=== PATIENT | female | born 1960 | race Caucasian/White ===

== ENCOUNTER 2020-06-07 05:14 | Inpatient (IN) ==
[2020-06-07] MEDS ORDERED: Ondansetron 4 MG/2 ML VIAL IVP ONE (05:46)
[2020-06-07] MEDS ORDERED: *HR* FentaNYL (PF) 100 MCG/2 ML VIAL IVP ONE (05:46)
[2020-06-07 05:55] LABS: Bilirubin,Urine Negative (Negative); Blood,Urine Negative (Negative); Clarity,Urine Clear (Clear); Color,Urine Light-Yellow (Yellow); Glucose,Urine (UA) Normal (Normal); Ketones,Urine Negative (Negative); Leukocyte Esterase,Urine Negative (Negative); Nitrite,Urine Negative (Negative); Protein,Urine Trace mg/dL (Neg-Trace); Urobilinogen,Urine Normal (Normal)
[2020-06-07 06:01] LABS: Basophils # 0.1 K/mcL (0.0-0.2); Basophils % 0.6 %; Eosinophils % 0.5 %; Hematocrit 35.6 % (35.3-44.9); Hemoglobin 12.2 g/dL (11.5-15.4); Immature Granulocytes % 0.4 % (0-4); Lymphocytes # 1.7 K/mcL (0.6-4.6); Mean Corpuscular HGB Conc 34.3 g/dL (31.6-35.5); Mean Corpuscular Hemoglobin 32.7 pg (28.0-33.3); Mean Corpuscular Volume 95.4 fL (83.0-100.0); Monocytes # 0.4 K/mcL (0.0-1.3); Monocytes % 5.2 %; Neutrophils # 5.9 K/mcL (1.6-8.9); Platelet Count 308 K/mcL (140-400); Red Blood Count 3.73 M/mcL (3.82-4.97); Segmented Neutrophils % 72.3 %; White Blood Count 8.1 K/mcL (4.3-11.1)
[2020-06-07 06:19] LABS: Alanine Aminotransferase 18 Units/L (7-52); Albumin 4.6 g/dL (3.5-5.7); Albumin/Globulin Ratio 2.1 (1.1-2.2); Alkaline Phosphatase 34 Units/L (34-104); Aspartate Amino Transferase 20 Units/L (13-39); BUN/Creatinine Ratio 28 (6-26); Bilirubin,Direct 0.1 mg/dL (0.0-0.2); Bilirubin,Indirect 0.2 mg/dL (0.0-1.0); Bilirubin,Total 0.3 mg/dL (0.3-1.0); Blood Urea Nitrogen 24 mg/dL (8-23); Carbon Dioxide 24 mEq/L (23-29); Chloride 105 mEq/L (98-107); Globulin 2.2 g/dL (2.4-3.5); Glucose 134 mg/dL (70-105); Lipase 44 Units/L (11-82); Osmolality,Calculated 294 (280-300); Potassium 4.1 mEq/L (3.5-5.1); Sodium 139 mEq/L (136-145); Total Protein 6.8 g/dL (6.4-8.9); Troponin I < 0.03 ng/mL (< 0.04); eGFR For African Americans > 60 (> 60); eGFR For Non-African Americans > 60 (> 60)
[2020-06-07] MEDS ORDERED: Morphine Sulfate 2 MG/ML SYRINGE IVP ONE (07:06)
[2020-06-07] MEDS ORDERED: Lidocaine -MPF 2% 2 ML VIAL ONE (08:14)
[2020-06-07] MEDS ORDERED: *HR* FentaNYL (PF) 100 MCG/2 ML VIAL ONE (08:14)
[2020-06-07] MEDS ORDERED: Dexamethasone 4 MG/ML VIAL ONE (08:14)
[2020-06-07] MEDS ORDERED: *HR* Midazolam HCl 2 MG/2 ML VIAL ONE (08:14)
[2020-06-07] MEDS ORDERED: *HR* Rocuronium Bromide 50 MG/5 ML VIAL ONE (08:14)
[2020-06-07] MEDS ORDERED: Ondansetron 4 MG/2 ML VIAL ONE (08:14)
[2020-06-07] MEDS ORDERED: *HR* Propofol 200 MG/20 ML VIAL IVP ONE ×2 (08:15)
[2020-06-07] MEDS ORDERED: *HR* Succinylcholine 200 MG/10 ML VIAL IVP ONE (08:19)
[2020-06-07] MEDS ORDERED: Acetaminophen IV 1,000 MG/100 ML BAG ONE (08:27)
[2020-06-07] MEDS ORDERED: 0.9 % Sodium Chloride 1,000 ML IVC SCH (09:00)
[2020-06-07] MEDS ORDERED: Ringers Solution, Lactated 1,000 ML IVC ONE (09:00)
[2020-06-07] MEDS ORDERED: CefOXitin 2,000 MG VIAL ONE (09:00)
[2020-06-07] MEDS ORDERED: cefOXitin 2,000 MG in Water for inj. (sterile) 20 ML IVP ONE (09:04)
[2020-06-07] MEDS ORDERED: Acetaminophen IV 1,000 MG/100 ML BAG IVPB ONE ×2 (09:40→11:08)
[2020-06-07] MEDS ORDERED: *HR* HYDROMORPHONE 2 MG/ML VIAL ONE (09:48)
[2020-06-07] MEDS ORDERED: *HR* PHENYLEPHRINE 1,000 MCG/10 ML SYRINGE IVP ONE (09:49)
[2020-06-07] MEDS ORDERED: cefOXitin 1,000 MG, Sodium Chloride IRRigation 1,000 ML IR ONE (10:00)
[2020-06-07] MEDS ORDERED: Sugammadex Sodium 200 MG/2 ML VIAL IV ONE (10:44)
[2020-06-07] MEDS ORDERED: *HR* Labetalol 20 MG/4 ML SYRINGE IVP PRN (11:08)
[2020-06-07] MEDS ORDERED: *HR* HYDROmorphone 2 MG TABLET PO PRN (11:08)
[2020-06-07] MEDS ORDERED: *HR* OxyCODONE Immed Rel 5 MG TABLET PO PRN (11:08)
[2020-06-07] MEDS ORDERED: Famotidine 20 MG/2 ML VIAL IVP ONE (11:08)
[2020-06-07] MEDS ORDERED: *HR* HYDROmorphone (PF) 1 MG/ML SYRINGE IVP PRN (11:08)
[2020-06-07] MEDS ORDERED: *HR* Metoprolol 5 MG/5 ML VIAL IVP PRN (12:00)
[2020-06-07] MEDS: 0.9 % Sodium Chloride 1,000 ML IVC SCH (13:12)
[2020-06-07] MEDS: cefOXitin 2,000 MG in Water for inj. (sterile) 20 ML IVP SCH (17:37)
[2020-06-07] MEDS: *HR* Heparin 5,000 UNIT/ML VIAL SQ SCH (17:45)
[2020-06-07] MEDS ORDERED: *HR* Heparin 5,000 UNIT/ML VIAL SQ SCH (18:00)
[2020-06-08] MEDS: Morphine Sulfate 2 MG/ML SYRINGE IVP PRN ×2 (00:49→07:32)
[2020-06-08] MEDS: cefOXitin 2,000 MG in Water for inj. (sterile) 20 ML IVP SCH ×4 (00:50→23:20)
[2020-06-08] MEDS: 0.9 % Sodium Chloride 1,000 ML IVC SCH ×2 (03:05→15:02)
[2020-06-08] MEDS: *HR* Heparin 5,000 UNIT/ML VIAL SQ SCH ×2 (05:52→17:21)
[2020-06-08] MEDS: Ketorolac 15 MG/ML VIAL IVP SCH ×5 (09:11→23:23)
[2020-06-08] MEDS: Acetaminophen IV 1,000 MG/100 ML BAG IVPB SCH ×3 (11:19→23:23)
[2020-06-09] MEDS: 0.9 % Sodium Chloride 1,000 ML IVC SCH (05:00)
[2020-06-09] MEDS: Ketorolac 15 MG/ML VIAL IVP SCH ×5 (05:01→17:32)
[2020-06-09] MEDS: *HR* Heparin 5,000 UNIT/ML VIAL SQ SCH ×2 (05:01→17:35)
[2020-06-09] MEDS: Acetaminophen IV 1,000 MG/100 ML BAG IVPB SCH (05:08)
[2020-06-09 06:09] LABS: BUN/Creatinine Ratio 26 (6-26); Blood Urea Nitrogen 16 mg/dL (8-23); Calcium 8.2 mg/dL (8.6-10.3); Carbon Dioxide 26 mEq/L (23-29); Chloride 109 mEq/L (98-107); Glucose 119 mg/dL (70-105); Osmolality,Calculated 292 (280-300); Potassium 3.8 mEq/L (3.5-5.1); Sodium 140 mEq/L (136-145); eGFR For African Americans > 60 (> 60); eGFR For Non-African Americans > 60 (> 60)
[2020-06-09] MEDS: cefOXitin 2,000 MG in Water for inj. (sterile) 20 ML IVP SCH ×2 (09:06→17:26)
[2020-06-09 09:58] LABS: Mean Corpuscular HGB Conc 30.4 g/dL (31.6-35.5); Mean Corpuscular Hemoglobin 31.5 pg (28.0-33.3); Mean Platelet Volume 10.3 fL (9.4-12.4); Platelet Count 223 K/mcL (140-400); Red Blood Count 2.41 M/mcL (3.82-4.97); Red Cell Distribution Width 12.7 % (11.5-14.5)
[2020-06-09 10:00] LABS: White Blood Count 3.2 K/mcL (4.3-11.1)
[2020-06-09 10:02] LABS: Hemoglobin 7.6 g/dL (11.5-15.4)
[2020-06-09 10:03] LABS: Mean Corpuscular Volume 103.7 fL (83.0-100.0)
[2020-06-09] MEDS: *HR* OxyCODONE/APAP 5/325 TABLET PO PRN ×3 (12:40→21:49)
[2020-06-10] MEDS: Ketorolac 15 MG/ML VIAL IVP SCH ×9 (00:05→23:14)
[2020-06-10] MEDS: cefOXitin 2,000 MG in Water for inj. (sterile) 20 ML IVP SCH ×3 (00:05→17:46)
[2020-06-10] MEDS: *HR* Heparin 5,000 UNIT/ML VIAL SQ SCH ×2 (05:54→17:47)
[2020-06-10 06:10] LABS: Hematocrit 22.5 % (35.3-44.9); Hemoglobin 7.3 g/dL (11.5-15.4); Mean Corpuscular HGB Conc 32.4 g/dL (31.6-35.5); Mean Corpuscular Hemoglobin 33.3 pg (28.0-33.3); Mean Corpuscular Volume 102.7 fL (83.0-100.0); Mean Platelet Volume 10.4 fL (9.4-12.4); Platelet Count 227 K/mcL (140-400); Red Blood Count 2.19 M/mcL (3.82-4.97); White Blood Count 1.8 K/mcL (4.3-11.1)
[2020-06-10 08:20] LABS: BUN/Creatinine Ratio 23 (6-26); Blood Urea Nitrogen 15 mg/dL (8-23); Calcium 8.5 mg/dL (8.6-10.3); Carbon Dioxide 24 mEq/L (23-29); Chloride 101 mEq/L (98-107); Glucose 115 mg/dL (70-105); Osmolality,Calculated 280 (280-300); Potassium 3.7 mEq/L (3.5-5.1); Sodium 134 mEq/L (136-145); eGFR For African Americans > 60 (> 60); eGFR For Non-African Americans > 60 (> 60)
[2020-06-10] MEDS: 0.9 % Sodium Chloride 1,000 ML IVC SCH ×2 (09:37→23:12)
[2020-06-11] MEDS: Ketorolac 15 MG/ML VIAL IVP SCH ×5 (00:42→17:42)
[2020-06-11] MEDS: cefOXitin 2,000 MG in Water for inj. (sterile) 20 ML IVP SCH ×3 (00:46→17:41)
[2020-06-11] MEDS: *HR* Heparin 5,000 UNIT/ML VIAL SQ SCH ×2 (06:29→17:42)
[2020-06-11] MEDS: 0.9 % Sodium Chloride 1,000 ML IVC SCH (12:13)
[2020-06-12] MEDS: cefOXitin 2,000 MG in Water for inj. (sterile) 20 ML IVP SCH ×3 (00:16→18:15)
[2020-06-12] MEDS: Ketorolac 15 MG/ML VIAL IVP SCH ×4 (00:17→18:17)
[2020-06-12 02:57] LABS: Hematocrit 20.2 % (35.3-44.9); Hemoglobin 6.6 g/dL (11.5-15.4); Mean Corpuscular HGB Conc 32.7 g/dL (31.6-35.5); Mean Corpuscular Hemoglobin 32.5 pg (28.0-33.3); Mean Corpuscular Volume 99.5 fL (83.0-100.0); Platelet Count 251 K/mcL (140-400); Red Blood Count 2.03 M/mcL (3.82-4.97); Red Cell Distribution Width 11.9 % (11.5-14.5)
[2020-06-12 03:08] LABS: BUN/Creatinine Ratio 32 (6-26); Blood Urea Nitrogen 19 mg/dL (8-23); Calcium 8.1 mg/dL (8.6-10.3); Carbon Dioxide 24 mEq/L (23-29); Chloride 106 mEq/L (98-107); Glucose 126 mg/dL (70-105); Osmolality,Calculated 296 (280-300); Potassium 3.7 mEq/L (3.5-5.1); Sodium 141 mEq/L (136-145); eGFR For African Americans > 60 (> 60); eGFR For Non-African Americans > 60 (> 60)
[2020-06-12 03:10] LABS: White Blood Count 3.6 K/mcL (4.3-11.1)
[2020-06-12] MEDS: *HR* Heparin 5,000 UNIT/ML VIAL SQ SCH ×2 (05:33→18:16)
[2020-06-12] MEDS: Ondansetron 4 MG/2 ML VIAL IVP PRN (08:19)
[2020-06-12] MEDS: 0.9 % Sodium Chloride 1,000 ML IVC SCH ×2 (13:14→19:47)
[2020-06-12] MEDS: Metoclopramide 10 MG/2 ML VIAL IVP SCH ×2 (13:15→18:17)
[2020-06-12] MEDS ORDERED: Chloraseptic Spray 177 ML BOTTLE MM PRN (22:15)
[2020-06-13] MEDS: cefOXitin 2,000 MG in Water for inj. (sterile) 20 ML IVP SCH ×3 (00:26→17:45)
[2020-06-13] MEDS: Ketorolac 15 MG/ML VIAL IVP SCH ×4 (00:26→17:46)
[2020-06-13] MEDS: 0.9 % Sodium Chloride 1,000 ML IVC SCH ×2 (00:37→14:21)
[2020-06-13] MEDS: Metoclopramide 10 MG/2 ML VIAL IVP SCH ×4 (00:46→17:46)
[2020-06-13] MEDS: Ondansetron 4 MG/2 ML VIAL IVP PRN (03:38)
[2020-06-13] MEDS: *HR* Heparin 5,000 UNIT/ML VIAL SQ SCH ×2 (05:37→17:46)
[2020-06-13] MEDS ORDERED: Isovue-370 500 ML BOTTLE IVP ONE (11:21)
[2020-06-14] MEDS: Metoclopramide 10 MG/2 ML VIAL IVP SCH ×4 (00:40→18:20)
[2020-06-14] MEDS: cefOXitin 2,000 MG in Water for inj. (sterile) 20 ML IVP SCH ×3 (00:45→18:17)
[2020-06-14] MEDS: Ketorolac 15 MG/ML VIAL IVP SCH ×2 (00:46→06:00)
[2020-06-14] MEDS: 0.9 % Sodium Chloride 1,000 ML IVC SCH (02:13)
[2020-06-14 05:14] LABS: Hematocrit 20.6 % (35.3-44.9); Hemoglobin 6.6 g/dL (11.5-15.4); Mean Corpuscular Hemoglobin 32.8 pg (28.0-33.3); Mean Corpuscular Volume 102.5 fL (83.0-100.0); Mean Platelet Volume 10.6 fL (9.4-12.4); Monocytes # 0.6 K/mcL (0.0-1.3); Nucleated Red Blood Cells 1.6 /100 WBC (0); Platelet Count 303 K/mcL (140-400); Red Blood Count 2.01 M/mcL (3.82-4.97); Red Cell Distribution Width 12.4 % (11.5-14.5); White Blood Count 5.1 K/mcL (4.3-11.1)
[2020-06-14 05:36] LABS: BUN/Creatinine Ratio 47 (6-26); Blood Urea Nitrogen 35 mg/dL (8-23); Carbon Dioxide 36 mEq/L (23-29); Chloride 109 mEq/L (98-107); Glucose 112 mg/dL (70-105); Osmolality,Calculated 331 (280-300); Potassium 2.9 mEq/L (3.5-5.1); Sodium 156 mEq/L (136-145); eGFR For African Americans > 60 (> 60); eGFR For Non-African Americans > 60 (> 60)
[2020-06-14 05:43] LABS: Lymphocytes # 0.6 K/mcL (0.6-4.6); Neutrophils # 3.8 K/mcL (1.6-8.9)
[2020-06-14] MEDS: *HR* Heparin 5,000 UNIT/ML VIAL SQ SCH ×2 (05:59→18:19)
[2020-06-14] MEDS: Ondansetron 4 MG/2 ML VIAL IVP PRN (06:08)
[2020-06-14] MEDS ORDERED: Potassium Chloride 40 MEQ, Lidocaine 1% 2 ML in 0.9 % Sodium Chloride 500 ML IVPB ONE ×2 (06:49→18:17)
[2020-06-14] MEDS ORDERED: Lidocaine -MPF 1% 5 ML AMPUL INFILT ONE (09:20)
[2020-06-14] MEDS ORDERED: *HR* Dextrose 50 % in Water (Vial) 50 ML VIAL IVP PRN (09:21)
[2020-06-14] MEDS ORDERED: Dextrose Gel 15 GM/37.5 ML TUBE PO PRN ×2 (09:21)
[2020-06-14] MEDS ORDERED: D5% in Water 1,000 ML IVC PRN (09:21)
[2020-06-14 10:25] LABS: Magnesium 2.6 mg/dL (1.6-2.6); Phosphorous 3.5 mg/dL (2.7-4.5)
[2020-06-14] MEDS: Pantoprazole 40 MG VIAL IVP SCH ×3 (11:10→18:19)
[2020-06-14] MEDS ORDERED: D10% in Water 500 ML IVC PRN (11:53)
[2020-06-14] MEDS: D5% in Water 1,000 ML IVC SCH (15:33)
[2020-06-14] MEDS ORDERED: Clinimix E 5%-15% SOLUTION 2,000 ML with MVI, adult with vitamin K 10 ML IVC SCH (17:00)
[2020-06-14] MEDS: Insulin LISPRO 300 UNITS/3 ML VIAL SUBQ SCH ×3 (17:47→23:25)
[2020-06-14] MEDS ORDERED: Potassium Chloride Elixir 20 MEQ/15 ML UDC PO ONE (18:16)
[2020-06-15] MEDS: Metoclopramide 10 MG/2 ML VIAL IVP SCH ×5 (00:35→23:20)
[2020-06-15] MEDS: cefOXitin 2,000 MG in Water for inj. (sterile) 20 ML IVP SCH ×3 (00:38→16:22)
[2020-06-15] MEDS: Insulin LISPRO 300 UNITS/3 ML VIAL SUBQ SCH ×7 (01:30→23:08)
[2020-06-15] MEDS: D5% in Water 1,000 ML IVC SCH (05:01)
[2020-06-15] MEDS: *HR* Heparin 5,000 UNIT/ML VIAL SQ SCH ×2 (05:41→17:13)
[2020-06-15] MEDS: Pantoprazole 40 MG VIAL IVP SCH ×2 (06:18→17:13)
[2020-06-15 06:28] LABS: Hematocrit 22.4 % (35.3-44.9); Hemoglobin 6.8 g/dL (11.5-15.4); Mean Corpuscular HGB Conc 30.4 g/dL (31.6-35.5); Mean Corpuscular Hemoglobin 31.9 pg (28.0-33.3); Mean Corpuscular Volume 105.2 fL (83.0-100.0); Mean Platelet Volume 10.9 fL (9.4-12.4); Platelet Count 385 K/mcL (140-400); Red Blood Count 2.13 M/mcL (3.82-4.97); Red Cell Distribution Width 13.2 % (11.5-14.5)
[2020-06-15 06:30] LABS: White Blood Count 10.7 K/mcL (4.3-11.1)
[2020-06-15 06:44] LABS: BUN/Creatinine Ratio 39 (6-26); Blood Urea Nitrogen 32 mg/dL (8-23); Calcium 7.9 mg/dL (8.6-10.3); Carbon Dioxide 30 mEq/L (23-29); Chloride 115 mEq/L (98-107); Glucose 147 mg/dL (70-105); Magnesium 2.5 mg/dL (1.6-2.6); Osmolality,Calculated 328 (280-300); Phosphorous 2.4 mg/dL (2.7-4.5); Potassium 3.7 mEq/L (3.5-5.1); Sodium 154 mEq/L (136-145); eGFR For African Americans > 60 (> 60); eGFR For Non-African Americans > 60 (> 60)
[2020-06-15 06:57] LABS: Lymphocytes # 1.9 K/mcL (0.6-4.6); Monocytes # 0.4 K/mcL (0.0-1.3); Neutrophils # 8.1 K/mcL (1.6-8.9); Platelet Estimate Normal (Normal); Polychromasia 1+ (Not Present)
[2020-06-15 10:16] LABS: % Iron Saturation 11 % (15-50); Iron 25 mcg/dL (50-170); Transferrin 160 mg/dL (203-362)
[2020-06-15] MEDS ORDERED: Furosemide 20 MG/2 ML VIAL IVP ONE ×2 (10:36→18:00)
[2020-06-15] MEDS ORDERED: Acetaminophen 325 MG TABLET PO ONE ×2 (10:36→14:00)
[2020-06-15] MEDS ORDERED: 0.9 % Sodium Chloride 250 ML IVC SCH (10:45)
[2020-06-15] MEDS: Iron Sucrose Complex 400 MG in 0.9 % Sodium Chloride 250 ML IVPB ONE ×2 (11:07→17:14)
[2020-06-15] MEDS: 0.9 % Sodium Chloride 1,000 ML IVC SCH (12:14)
[2020-06-15] MEDS ORDERED: Clinimix E 5%-15% SOLUTION 2,000 ML IVC SCH (17:00)
[2020-06-15 21:05] LABS: Hematocrit 25.8 % (35.3-44.9); Hemoglobin 8.1 g/dL (11.5-15.4)
[2020-06-15] MEDS: Ondansetron 4 MG/2 ML VIAL IVP PRN (21:29)
[2020-06-16] MEDS: cefOXitin 2,000 MG in Water for inj. (sterile) 20 ML IVP SCH ×2 (01:26→09:30)
[2020-06-16 03:02] LABS: Hematocrit 26.3 % (35.3-44.9); Hemoglobin 8.1 g/dL (11.5-15.4); Mean Corpuscular HGB Conc 30.8 g/dL (31.6-35.5); Mean Corpuscular Hemoglobin 31.2 pg (28.0-33.3); Mean Corpuscular Volume 101.2 fL (83.0-100.0); Mean Platelet Volume 11.1 fL (9.4-12.4); Nucleated Red Blood Cells 0.7 /100 WBC (0); Platelet Count 348 K/mcL (140-400); White Blood Count 14.7 K/mcL (4.3-11.1)
[2020-06-16 03:15] LABS: BUN/Creatinine Ratio 28 (6-26); Blood Urea Nitrogen 27 mg/dL (8-23); Calcium 7.6 mg/dL (8.6-10.3); Carbon Dioxide 30 mEq/L (23-29); Chloride 113 mEq/L (98-107); Glucose 108 mg/dL (70-105); Magnesium 2.3 mg/dL (1.6-2.6); Osmolality,Calculated 324 (280-300); Phosphorous 4.9 mg/dL (2.7-4.5); Potassium 3.3 mEq/L (3.5-5.1); Sodium 154 mEq/L (136-145); eGFR For African Americans > 60 (> 60); eGFR For Non-African Americans 60 (> 60)
[2020-06-16 03:26] LABS: Lymphocytes # 1.5 K/mcL (0.6-4.6); Monocytes # 0.6 K/mcL (0.0-1.3); Neutrophils # 12.4 K/mcL (1.6-8.9)
[2020-06-16 03:27] LABS: Platelet Estimate Normal (Normal); Polychromasia 1+ (Not Present)
[2020-06-16] MEDS: Insulin LISPRO 300 UNITS/3 ML VIAL SUBQ SCH ×2 (06:01→07:49)
[2020-06-16] MEDS: Pantoprazole 40 MG VIAL IVP SCH ×2 (06:03→18:07)
[2020-06-16] MEDS: Metoclopramide 10 MG/2 ML VIAL IVP SCH ×3 (06:03→18:07)
[2020-06-16] MEDS: *HR* Heparin 5,000 UNIT/ML VIAL SQ SCH ×2 (06:03→18:06)
[2020-06-16] MEDS ORDERED: Potassium Chloride 40 MEQ, Lidocaine 1% 2 ML in 0.9 % Sodium Chloride 500 ML IVPB ONE (06:38)
[2020-06-16] MEDS ORDERED: 0.9 % Sodium Chloride 1,000 ML IVC SCH (06:40)
[2020-06-16] MEDS: Potassium Chloride Elixir 20 MEQ/15 ML UDC PO SCH ×2 (08:09→21:58)
[2020-06-16] MEDS: Ondansetron 4 MG/2 ML VIAL IVP PRN (22:00)
[2020-06-17] MEDS ORDERED: Ketorolac 15 MG/ML VIAL IVP ONE (01:01)
[2020-06-17] MEDS: Metoclopramide 10 MG/2 ML VIAL IVP SCH ×5 (01:17→23:44)
[2020-06-17 02:24] LABS: BUN/Creatinine Ratio 26 (6-26); Blood Urea Nitrogen 27 mg/dL (8-23); Calcium 7.8 mg/dL (8.6-10.3); Carbon Dioxide 25 mEq/L (23-29); Chloride 117 mEq/L (98-107); Glucose 149 mg/dL (70-105); Osmolality,Calculated 320 (280-300); Potassium 3.9 mEq/L (3.5-5.1); Sodium 151 mEq/L (136-145); eGFR For African Americans > 60 (> 60); eGFR For Non-African Americans 53 (> 60)
[2020-06-17] MEDS: Pantoprazole 40 MG VIAL IVP SCH ×2 (06:45→17:58)
[2020-06-17] MEDS: *HR* Heparin 5,000 UNIT/ML VIAL SQ SCH ×2 (06:46→17:59)
[2020-06-17] MEDS: 0.9 % Sodium Chloride 1,000 ML IVC SCH ×2 (07:26→07:27)
[2020-06-17] MEDS ORDERED: Isovue-370 500 ML BOTTLE IVP ONE (08:00)
[2020-06-17] MEDS ORDERED: 0.9 % Sodium Chloride 1,000 ML IV ONE (08:02)
[2020-06-17] MEDS: Ketorolac 15 MG/ML VIAL IVP PRN ×3 (09:06→23:55)
[2020-06-17] MEDS ORDERED: Isovue-370 500 ML BOTTLE PO ONE (10:01)
[2020-06-17] MEDS: Potassium Chloride Elixir 20 MEQ/15 ML UDC PO SCH ×2 (13:16→21:10)
[2020-06-17] MEDS ORDERED: Acetaminophen IV 1,000 MG/100 ML BAG IVPB ONE (14:19)
[2020-06-17 14:29] LABS: Phosphorous 3.2 mg/dL (2.7-4.5)
[2020-06-17] MEDS: Insulin LISPRO 300 UNITS/3 ML VIAL SUBQ SCH ×3 (16:26→23:45)
[2020-06-17] MEDS: Clinimix E 5%-15% SOLUTION 2,000 ML IVC SCH (16:35)
[2020-06-18] MEDS: Insulin LISPRO 300 UNITS/3 ML VIAL SUBQ SCH ×5 (03:38→20:53)
[2020-06-18 03:56] LABS: Hematocrit 31.9 % (35.3-44.9); Hemoglobin 9.6 g/dL (11.5-15.4); Mean Corpuscular HGB Conc 30.1 g/dL (31.6-35.5); Mean Corpuscular Hemoglobin 30.8 pg (28.0-33.3); Mean Corpuscular Volume 102.2 fL (83.0-100.0); Mean Platelet Volume 11.6 fL (9.4-12.4); Platelet Count 356 K/mcL (140-400); Red Blood Count 3.12 M/mcL (3.82-4.97); Red Cell Distribution Width 14.3 % (11.5-14.5); White Blood Count 13.7 K/mcL (4.3-11.1)
[2020-06-18 04:22] LABS: Calcium 7.6 mg/dL (8.6-10.3); Potassium 4.4 mEq/L (3.5-5.1)
[2020-06-18] MEDS: Metoclopramide 10 MG/2 ML VIAL IVP SCH ×3 (06:00→17:20)
[2020-06-18] MEDS: *HR* Heparin 5,000 UNIT/ML VIAL SQ SCH ×2 (06:00→17:21)
[2020-06-18] MEDS: Pantoprazole 40 MG VIAL IVP SCH ×2 (06:01→17:18)
[2020-06-18] MEDS: Ketorolac 15 MG/ML VIAL IVP PRN (06:01)
[2020-06-18] MEDS ORDERED: 0.9 % Sodium Chloride 1,000 ML IV ONE (06:32)
[2020-06-18] MEDS: Potassium Chloride Elixir 20 MEQ/15 ML UDC PO SCH ×2 (08:35→20:53)
[2020-06-18] MEDS ORDERED: Ringers Solution, Lactated 500 ML IVC ONE (09:25)
[2020-06-18] MEDS: 0.9 % Sodium Chloride 1,000 ML IVC SCH (11:16)
[2020-06-18] MEDS ORDERED: D10% in Water 500 ML IVC PRN (13:59)
[2020-06-18 14:56] LABS: Magnesium 2.3 mg/dL (1.6-2.6); Phosphorous 5.2 mg/dL (2.7-4.5)
[2020-06-18] MEDS ORDERED: Clinimix E 5%-15% SOLUTION 2,000 ML, Parenteral Amino Acid 10% 0 ML with MVI, adult wi... IVC SCH (17:00)
[2020-06-18] MEDS ORDERED: Fat Emulsions 20% 250 ML IVPB SCH (17:00)
[2020-06-18] MEDS ORDERED: Clinimix 5%-20% SOLUTION 2,000 ML with MVI, adult with vitamin K 10 ML, Sodium Acetat... IVC SCH (17:00)
[2020-06-19] MEDS: Insulin LISPRO 300 UNITS/3 ML VIAL SUBQ SCH ×6 (00:05→21:48)
[2020-06-19] MEDS: Metoclopramide 10 MG/2 ML VIAL IVP SCH ×4 (00:45→18:25)
[2020-06-19] MEDS: 0.9 % Sodium Chloride 1,000 ML IVC SCH ×2 (02:46→18:14)
[2020-06-19] MEDS ORDERED: Saline Nasal Spray 44 ML BOTTLE NS PRN (04:36)
[2020-06-19] MEDS: Pantoprazole 40 MG VIAL IVP SCH ×2 (06:00→18:24)
[2020-06-19] MEDS: *HR* Heparin 5,000 UNIT/ML VIAL SQ SCH ×2 (06:00→18:25)
[2020-06-19 06:07] LABS: Hematocrit 27.4 % (35.3-44.9); Hemoglobin 8.3 g/dL (11.5-15.4); Mean Corpuscular HGB Conc 30.3 g/dL (31.6-35.5); Mean Corpuscular Hemoglobin 31.2 pg (28.0-33.3); Mean Platelet Volume 12.2 fL (9.4-12.4); Platelet Count 278 K/mcL (140-400); Red Blood Count 2.66 M/mcL (3.82-4.97); Red Cell Distribution Width 14.4 % (11.5-14.5); White Blood Count 7.7 K/mcL (4.3-11.1)
[2020-06-19 06:26] LABS: Calcium 7.7 mg/dL (8.6-10.3); Magnesium 2.3 mg/dL (1.6-2.6); Phosphorous 3.5 mg/dL (2.7-4.5)
[2020-06-19] MEDS: Potassium Chloride Elixir 20 MEQ/15 ML UDC PO SCH ×2 (08:52→21:47)
[2020-06-19] MEDS ORDERED: SODIUM ACETATE IVPB SCH (17:00)
[2020-06-19] MEDS ORDERED: [UNRECOGNIZED DRUG - OTHER] IVPB SCH (17:00)
[2020-06-19] MEDS ORDERED: Clinimix E 5%-15% SOLUTION 2,000 ML, Parenteral Amino Acid 10% 0 ML with MVI, adult wi... IVC SCH (17:00)
[2020-06-19] MEDS ORDERED: CLINIMIX IVPB SCH (17:00)
[2020-06-20] MEDS: Clinimix E 5%-15% SOLUTION 2,000 ML IVC SCH (00:14)
[2020-06-20] MEDS: Insulin LISPRO 300 UNITS/3 ML VIAL SUBQ SCH ×6 (02:04→20:24)
[2020-06-20] MEDS: Metoclopramide 10 MG/2 ML VIAL IVP SCH ×2 (02:05→05:50)
[2020-06-20] MEDS: Pantoprazole 40 MG VIAL IVP SCH ×2 (05:49→17:29)
[2020-06-20] MEDS: *HR* Heparin 5,000 UNIT/ML VIAL SQ SCH ×2 (05:49→17:29)
[2020-06-20 06:28] LABS: Hemoglobin 7.9 g/dL (11.5-15.4); Mean Corpuscular HGB Conc 30.4 g/dL (31.6-35.5); Mean Corpuscular Hemoglobin 31.3 pg (28.0-33.3); Mean Corpuscular Volume 103.2 fL (83.0-100.0); Mean Platelet Volume 12.2 fL (9.4-12.4); Platelet Count 227 K/mcL (140-400); Red Blood Count 2.52 M/mcL (3.82-4.97); Red Cell Distribution Width 14.3 % (11.5-14.5); White Blood Count 6.5 K/mcL (4.3-11.1)
[2020-06-20 06:54] LABS: BUN/Creatinine Ratio 27 (6-26); Blood Urea Nitrogen 30 mg/dL (8-23); Calcium 7.6 mg/dL (8.6-10.3); Carbon Dioxide 23 mEq/L (23-29); Chloride 123 mEq/L (98-107); Glucose 131 mg/dL (70-105); Magnesium 2.2 mg/dL (1.6-2.6); Osmolality,Calculated 324 (280-300); Phosphorous 2.4 mg/dL (2.7-4.5); Potassium 3.9 mEq/L (3.5-5.1); Sodium 153 mEq/L (136-145); eGFR For African Americans > 60 (> 60); eGFR For Non-African Americans 50 (> 60)
[2020-06-20] MEDS ORDERED: MOM Conc 10 ML UD.LIQ PO ONE (07:43)
[2020-06-20] MEDS: 0.9 % Sodium Chloride 1,000 ML IVC SCH ×2 (07:50→17:29)
[2020-06-20] MEDS: Potassium Chloride Elixir 20 MEQ/15 ML UDC PO SCH ×2 (07:51→20:23)
[2020-06-20] MEDS ORDERED: Clinimix E 5%-15% SOLUTION 2,000 ML IVC SCH (17:00)
[2020-06-21] MEDS: Insulin LISPRO 300 UNITS/3 ML VIAL SUBQ SCH ×6 (00:10→22:22)
[2020-06-21] MEDS: *HR* Heparin 5,000 UNIT/ML VIAL SQ SCH ×2 (06:24→17:47)
[2020-06-21] MEDS: Pantoprazole 40 MG VIAL IVP SCH ×2 (06:24→17:50)
[2020-06-21 07:17] LABS: BUN/Creatinine Ratio 28 (6-26); Blood Urea Nitrogen 29 mg/dL (8-23); Calcium 7.6 mg/dL (8.6-10.3); Carbon Dioxide 24 mEq/L (23-29); Chloride 124 mEq/L (98-107); Glucose 120 mg/dL (70-105); Magnesium 2.3 mg/dL (1.6-2.6); Osmolality,Calculated 323 (280-300); Phosphorous 3.9 mg/dL (2.7-4.5); Potassium 4.1 mEq/L (3.5-5.1); Sodium 153 mEq/L (136-145); eGFR For African Americans > 60 (> 60); eGFR For Non-African Americans 55 (> 60)
[2020-06-21] MEDS: Potassium Chloride Elixir 20 MEQ/15 ML UDC PO SCH ×2 (10:58→22:24)
[2020-06-21] MEDS ORDERED: 0.9 % Sodium Chloride 1,000 ML IVC SCH (15:39)
[2020-06-21] MEDS ORDERED: Clinimix E 5%-15% SOLUTION 2,000 ML with MVI, adult with vitamin K 10 ML IVC SCH (17:00)
[2020-06-22] MEDS: Insulin LISPRO 300 UNITS/3 ML VIAL SUBQ SCH ×6 (00:30→21:31)
[2020-06-22] MEDS: *HR* Heparin 5,000 UNIT/ML VIAL SQ SCH ×2 (05:41→17:22)
[2020-06-22] MEDS: Pantoprazole 40 MG VIAL IVP SCH ×2 (05:42→17:22)
[2020-06-22 07:14] LABS: Magnesium 2.9 mg/dL (1.6-2.6); Phosphorous 5.5 mg/dL (2.7-4.5); Potassium 4.3 mEq/L (3.5-5.1)
[2020-06-22 12:13] LABS: Magnesium 2.9 mg/dL (1.6-2.6); Phosphorous 4.9 mg/dL (2.7-4.5)
[2020-06-22] MEDS ORDERED: SODIUM ACETATE IVPB SCH (17:00)
[2020-06-22] MEDS ORDERED: CLINIMIX IVPB SCH (17:00)
[2020-06-22] MEDS ORDERED: [UNRECOGNIZED DRUG - OTHER] IVPB SCH (17:00)
[2020-06-22] MEDS: 0.9 % Sodium Chloride 1,000 ML IVC SCH (22:53)
[2020-06-23 00:31] VITALS: BP 111/69
[2020-06-23] MEDS: Insulin LISPRO 300 UNITS/3 ML VIAL SUBQ SCH (01:38)
[2020-06-23] MEDS: Ondansetron 4 MG/2 ML VIAL IVP PRN (03:45)
== END 2020-06-23 03:54 | disposition short-term general hospital (02) | DRG 330 ==
LOC: EMEROOARM 05:14 → 3ANU 05:14
PROVIDERS: ADMIT Surgery; ATTEND Surgery